=== PATIENT | male | born 1955 | race Caucasian/White ===

== ENCOUNTER 2017-03-01 08:15 | Inpatient (IN) | payer MEDICARE ==
[~2017-03-01] VITALS: Ht 172.7 cm; Wt 56.8 kg
[~2017-03-01 08:15] MED LIST: ACID1GRA2 PO; AZIT500T4 PO; CALC-666 PO; CALC1TAB68 PO; CHOL239. PO; CYAN10005 PO; ERGO500017 PO; FOLI-17 PO; HYDR-3138 PO; METR500T PO; MULT1TAB60 PO; NICO1PAT5 TD; OXYC5TAB3 PO; PHOS250T3 PO; THIA100T6 PO
[2017-03-01] MEDS ORDERED: SODIUM CHLORIDE 0.9% 1,000 ML IV ONE (08:29)
[2017-03-01] MEDS ORDERED: SODIUM CHLORIDE 0.9% 1,000ML IVBOLUS ONE (08:30)
[2017-03-01] MEDS ORDERED: MAALOX/HYOSCYAMINE/LIDOCAINE 45 ML BOTTLE PO ONE (08:30)
[2017-03-01] MEDS ORDERED: FAMOTIDINE 20 MG/2 ML IVP ONE (08:30)
[2017-03-01] MEDS ORDERED: DIPH,PERTUSS(ACELL),TET VAC/PF 0.5 ML IM-VACC ONE ×2 (08:30→08:56)
[2017-03-01] MEDS ORDERED: ONDANSETRON 2MG/ML, 2ML IVPush ONE (08:30)
[2017-03-01] MEDS ORDERED: ONDANSETRON 2MG/ML, 2ML ONE (08:55)
[2017-03-01] MEDS ORDERED: MAALOX/HYOSCYAMINE/LIDOCAINE 45 ML BOTTLE ONE (08:55)
[2017-03-01] MEDS ORDERED: FAMOTIDINE 20 MG/2 ML ONE (08:56)
[2017-03-01] MEDS ORDERED: MORPHINE SULFATE 4 MG/ML, 1ML ONE ×2 (08:59→10:20)
[2017-03-01] MEDS: MORPHINE SULFATE 4 MG/ML, 1ML IVPush PRN ×2 (09:05→10:24)
[2017-03-01 09:12] LABS: ASPARTATE AMINO TRANSFERASE 20 U/L (15-37); BLOOD UREA NITROGEN 26 mg/dL (7-18)
[2017-03-01] MEDS ORDERED: NS + 40MEQ KCL 1,000 ML IV ONE (11:31)
[2017-03-01] MEDS: NS + 40MEQ KCL 1,000 ML IV SCH ×2 (11:37→15:30)
[2017-03-01 12:56] VITALS: BP 131/83
[2017-03-01] MEDS: SODIUM CHLORIDE 0.9% 1,000 ML IV SCH (15:25)
[2017-03-01] MEDS ORDERED: ENALAPRILAT 1.25 MG/ML, 2ML IVPush PRN (15:30)
[2017-03-01] MEDS ORDERED: ONDANSETRON 2MG/ML, 2ML IVP PRN (15:30)
[2017-03-01] MEDS ORDERED: TEMAZEPAM 15 MG CAPSULE PO PRN (15:30)
[2017-03-01] MEDS ORDERED: VANCOMYCIN PER PHARMACY MC PRN (15:30)
[2017-03-01] MEDS ORDERED: ACETAMINOPHEN 325 MG TABLET PO PRN (15:30)
[2017-03-01] MEDS: VANCOMYCIN PMX 1GM/200ML 200 ML IV SCH (16:59)
[2017-03-01] MEDS: NICOTINE 21 MG/24 HR PATCH.TD24 TD SCH (16:59)
[2017-03-01] MEDS ORDERED: PHARMACOKINETIC CONSULTATION MC ONE (18:30)
[2017-03-01] MEDS ORDERED: PHARMACOKINETIC MONITORING MC PRN (18:30)
[2017-03-01 19:21] VITALS: BP 187/71
[2017-03-01] MEDS: HYDROcodone/APAP 5/325 TABLET PO PRN (20:31)
[2017-03-01] MEDS: AMPICILLIN/SULBACTAM 3 GM in SODIUM CHLORIDE 0.9% 100 ML IV SCH (20:31)
[2017-03-01] MEDS: ENOXAPARIN 40 MG/0.4 ML SQ SCH (20:32)
[2017-03-01] MEDS: POTASSIUM CHLORIDE 40 MEQ in SODIUM CHLORIDE 0.9% 500 ML IV SCH (23:07)
[2017-03-02 01:56] VITALS: BP 148/83
[2017-03-02] MEDS: MORPHINE SULFATE 4 MG/ML, 1ML IVPush PRN ×2 (03:25→09:57)
[2017-03-02] MEDS: AMPICILLIN/SULBACTAM 3 GM in SODIUM CHLORIDE 0.9% 100 ML IV SCH ×4 (03:29→22:02)
[2017-03-02] MEDS: POTASSIUM CHLORIDE 40 MEQ in SODIUM CHLORIDE 0.9% 500 ML IV SCH (04:28)
[2017-03-02 06:17] LABS: DIFF TOTAL CELLS COUNTED 100 CELL DIFF
[2017-03-02 06:21] LABS: ASPARTATE AMINO TRANSFERASE 16 U/L (15-37); BLOOD UREA NITROGEN 17 mg/dL (7-18)
[2017-03-02 06:36] LABS: VERIFY COUNTS? YES
[2017-03-02 07:40] VITALS: BP 142/85
[2017-03-02] MEDS: PANTOPROZOLE 40MG TABLET PO SCH (09:32)
[2017-03-02] MEDS: HYDROcodone/APAP 5/325 TABLET PO PRN ×3 (11:16→22:13)
[2017-03-02] MEDS: SODIUM CHLORIDE 0.9% 1,000 ML IV SCH ×2 (12:50→22:00)
[2017-03-02 13:13] VITALS: BP 144/83
[2017-03-02] MEDS ORDERED: MAGNESIUM SULFATE PMX 2GM/50ML 50 ML IV ONE (13:30)
[2017-03-02] MEDS ORDERED: POTASSIUM PHOSPHATE 88 MEQ in SODIUM CHLORIDE 0.9% 1,000 ML IV ONE (14:00)
[2017-03-02] MEDS: VANCOMYCIN PMX 1GM/200ML 200 ML IV SCH (17:51)
[2017-03-02] MEDS: NICOTINE 21 MG/24 HR PATCH.TD24 TD SCH (17:51)
[2017-03-02 18:47] VITALS: BP 102/65
[2017-03-02] MEDS: ENOXAPARIN 40 MG/0.4 ML SQ SCH (22:02)
[2017-03-03 01:04] VITALS: BP 103/63
[2017-03-03] MEDS: AMPICILLIN/SULBACTAM 3 GM in SODIUM CHLORIDE 0.9% 100 ML IV SCH ×4 (03:23→22:04)
[2017-03-03] MEDS: MORPHINE SULFATE 4 MG/ML, 1ML IVPush PRN ×2 (03:32→18:32)
[2017-03-03 06:30] LABS: BLOOD UREA NITROGEN 13 mg/dL (7-18)
[2017-03-03 07:19] VITALS: BP 100/69
[2017-03-03] MEDS: PANTOPROZOLE 40MG TABLET PO SCH (10:53)
[2017-03-03] MEDS: MAGNESIUM OXIDE 400 MG TABLET PO SCH ×2 (13:26→22:04)
[2017-03-03 13:53] VITALS: BP 119/79
[2017-03-03] MEDS: HYDROcodone/APAP 5/325 TABLET PO PRN ×2 (15:54→22:17)
[2017-03-03] MEDS: NICOTINE 21 MG/24 HR PATCH.TD24 TD SCH (15:54)
[2017-03-03] MEDS ORDERED: VANCOMYCIN PMX 1GM/200ML 200 ML IV SCH (18:00)
[2017-03-03 19:05] VITALS: BP 112/72
[2017-03-03] MEDS: ENOXAPARIN 40 MG/0.4 ML SQ SCH (22:04)
[2017-03-03] MEDS: SODIUM CHLORIDE 0.9% 1,000 ML IV SCH (22:04)
[2017-03-04 02:59] VITALS: BP 107/64
[2017-03-04] MEDS: AMPICILLIN/SULBACTAM 3 GM in SODIUM CHLORIDE 0.9% 100 ML IV SCH ×4 (04:21→22:55)
[2017-03-04] MEDS: HYDROcodone/APAP 5/325 TABLET PO PRN ×3 (04:41→21:27)
[2017-03-04] MEDS: VANCOMYCIN PMX 1GM/200ML 200 ML IV SCH ×2 (05:05→17:24)
[2017-03-04 07:17] VITALS: BP 124/78
[2017-03-04] MEDS: MAGNESIUM OXIDE 400 MG TABLET PO SCH ×2 (11:39→21:27)
[2017-03-04] MEDS: PANTOPROZOLE 40MG TABLET PO SCH (11:39)
[2017-03-04] MEDS: SODIUM CHLORIDE 0.9% 1,000 ML IV SCH ×2 (11:40→21:27)
[2017-03-04] MEDS ORDERED: GADOBUTROL 7.5 MMOL/7.5 ML PFS ONE (11:47)
[2017-03-04 13:22] VITALS: BP 115/75
[2017-03-04] MEDS: NICOTINE 21 MG/24 HR PATCH.TD24 TD SCH (15:30)
[2017-03-04 19:50] VITALS: BP 109/68
[2017-03-04] MEDS: ENOXAPARIN 40 MG/0.4 ML SQ SCH (21:27)
[2017-03-05 01:06] VITALS: BP 101/62
[2017-03-05] MEDS: MORPHINE SULFATE 4 MG/ML, 1ML IVPush PRN ×3 (01:33→22:40)
[2017-03-05] MEDS: AMPICILLIN/SULBACTAM 3 GM in SODIUM CHLORIDE 0.9% 100 ML IV SCH ×4 (04:43→22:40)
[2017-03-05] MEDS: HYDROcodone/APAP 5/325 TABLET PO PRN ×3 (05:12→20:41)
[2017-03-05] MEDS: VANCOMYCIN PMX 1GM/200ML 200 ML IV SCH ×2 (05:12→17:21)
[2017-03-05 07:16] VITALS: BP 113/75
[2017-03-05] MEDS: SODIUM CHLORIDE 0.9% 1,000 ML IV SCH ×2 (09:31→20:41)
[2017-03-05] MEDS: PANTOPROZOLE 40MG TABLET PO SCH (09:31)
[2017-03-05] MEDS: MAGNESIUM OXIDE 400 MG TABLET PO SCH ×2 (09:31→20:41)
[2017-03-05 13:41] VITALS: BP 115/75
[2017-03-05] MEDS: NICOTINE 21 MG/24 HR PATCH.TD24 TD SCH (15:27)
[2017-03-05 19:49] VITALS: BP 109/72
[2017-03-05] MEDS: ENOXAPARIN 40 MG/0.4 ML SQ SCH (20:41)
[2017-03-06 01:36] VITALS: BP 112/68
[2017-03-06] MEDS: HYDROcodone/APAP 5/325 TABLET PO PRN ×4 (03:49→22:40)
[2017-03-06] MEDS: AMPICILLIN/SULBACTAM 3 GM in SODIUM CHLORIDE 0.9% 100 ML IV SCH ×4 (03:49→22:41)
[2017-03-06] MEDS: SODIUM CHLORIDE 0.9% 1,000 ML IV SCH ×2 (05:24→22:40)
[2017-03-06] MEDS: VANCOMYCIN PMX 1GM/200ML 200 ML IV SCH ×2 (05:24→17:26)
[2017-03-06 07:32] VITALS: BP 135/82
[2017-03-06] MEDS: PANTOPROZOLE 40MG TABLET PO SCH (09:10)
[2017-03-06] MEDS: MAGNESIUM OXIDE 400 MG TABLET PO SCH ×2 (09:10→22:39)
[2017-03-06 15:01] VITALS: BP 116/75
[2017-03-06] MEDS: NICOTINE 21 MG/24 HR PATCH.TD24 TD SCH (15:30)
[2017-03-06 20:11] VITALS: BP 129/83
[2017-03-06] MEDS: ENOXAPARIN 40 MG/0.4 ML SQ SCH (22:40)
[2017-03-07 02:50] VITALS: BP 125/74
[2017-03-07] MEDS: AMPICILLIN/SULBACTAM 3 GM in SODIUM CHLORIDE 0.9% 100 ML IV SCH ×4 (04:20→22:00)
[2017-03-07] MEDS: VANCOMYCIN PMX 1GM/200ML 200 ML IV SCH ×2 (05:17→18:16)
[2017-03-07] MEDS: HYDROcodone/APAP 5/325 TABLET PO PRN ×3 (06:47→22:00)
[2017-03-07] MEDS: MAGNESIUM OXIDE 400 MG TABLET PO SCH ×2 (09:51→22:00)
[2017-03-07] MEDS: SILVER SULF. CRM 1%, 400GM TP SCH (09:51)
[2017-03-07] MEDS: PANTOPROZOLE 40MG TABLET PO SCH (09:51)
[2017-03-07] MEDS: SODIUM CHLORIDE 0.9% 1,000 ML IV SCH ×2 (09:57→22:00)
[2017-03-07 10:50] VITALS: BP 145/74
[2017-03-07 13:55] VITALS: BP 125/81
[2017-03-07] MEDS: NICOTINE 21 MG/24 HR PATCH.TD24 TD SCH (15:16)
[2017-03-07 20:01] VITALS: BP 128/83
[2017-03-07] MEDS: ENOXAPARIN 40 MG/0.4 ML SQ SCH (22:00)
[2017-03-08 01:22] VITALS: BP 136/90
[2017-03-08] MEDS: AMPICILLIN/SULBACTAM 3 GM in SODIUM CHLORIDE 0.9% 100 ML IV SCH ×3 (04:17→15:37)
[2017-03-08] MEDS: SODIUM CHLORIDE 0.9% 1,000 ML IV SCH (05:50)
[2017-03-08 07:21] VITALS: BP 137/84
[2017-03-08] MEDS: VANCOMYCIN PMX 1GM/200ML 200 ML IV SCH ×2 (08:09→20:29)
[2017-03-08] MEDS: PANTOPROZOLE 40MG TABLET PO SCH (10:58)
[2017-03-08] MEDS: MAGNESIUM OXIDE 400 MG TABLET PO SCH ×2 (10:58→20:28)
[2017-03-08] MEDS: SILVER SULF. CRM 1%, 400GM TP SCH (10:59)
[2017-03-08 14:31] VITALS: BP 113/75
[2017-03-08] MEDS: HYDROcodone/APAP 5/325 TABLET PO PRN (15:37)
[2017-03-08] MEDS: NICOTINE 21 MG/24 HR PATCH.TD24 TD SCH (15:37)
[2017-03-08 19:05] VITALS: BP 104/69
[2017-03-08] MEDS: ENOXAPARIN 40 MG/0.4 ML SQ SCH (20:29)
[2017-03-09] MEDS: AMPICILLIN/SULBACTAM 3 GM in SODIUM CHLORIDE 0.9% 100 ML IV SCH ×4 (00:49→17:07)
[2017-03-09] MEDS: VANCOMYCIN 50 MG/ML ORAL SUSP PO SCH ×4 (00:49→17:08)
[2017-03-09 02:42] VITALS: BP 123/72
[2017-03-09 05:30] LABS: BLOOD UREA NITROGEN 7 mg/dL (7-18)
[2017-03-09 05:35] LABS: ASPARTATE AMINO TRANSFERASE 14 U/L (15-37)
[2017-03-09] MEDS: SODIUM CHLORIDE 0.9% 1,000 ML IV SCH (06:00)
[2017-03-09 06:04] LABS: DIFF TOTAL CELLS COUNTED 100 CELL DIFF
[2017-03-09 06:09] LABS: VERIFY COUNTS? YES
[2017-03-09 06:10] LABS: ANISOCYTOSIS 1+; HYPOCHROMIA 1+
[2017-03-09 06:11] LABS: POLYCHROMASIA 1+
[2017-03-09 08:12] VITALS: BP 163/98
[2017-03-09] MEDS ORDERED: POTASSIUM PHOSPHATE 44 MEQ in SODIUM CHLORIDE 0.9% 500 ML IV SCH (09:00)
[2017-03-09] MEDS ORDERED: POTASSIUM CHLORIDE 20 MEQ TAB.ER.PRT PO ONE (09:00)
[2017-03-09] MEDS ORDERED: MAGNESIUM SULFATE PMX 4GM/100M 100 ML IV ONE (09:00)
[2017-03-09] MEDS: PANTOPROZOLE 40MG TABLET PO SCH (09:18)
[2017-03-09] MEDS: MAGNESIUM OXIDE 400 MG TABLET PO SCH ×2 (09:18→20:59)
[2017-03-09] MEDS: VANCOMYCIN PMX 1GM/200ML 200 ML IV SCH ×2 (09:18→20:59)
[2017-03-09] MEDS ORDERED: POTASSIUM PHOSPHATE 88 MEQ in SODIUM CHLORIDE 0.9% 1,000 ML IV ONE (09:23)
[2017-03-09] MEDS: HYDROcodone/APAP 5/325 TABLET PO PRN ×2 (10:21→21:03)
[2017-03-09] MEDS: SILVER SULF. CRM 1%, 400GM TP SCH (10:22)
[2017-03-09 14:00] VITALS: BP 116/73
[2017-03-09] MEDS: NICOTINE 21 MG/24 HR PATCH.TD24 TD SCH (15:27)
[2017-03-09 20:30] VITALS: BP 140/91
[2017-03-09] MEDS: ENOXAPARIN 40 MG/0.4 ML SQ SCH (20:59)
[2017-03-10] MEDS: AMPICILLIN/SULBACTAM 3 GM in SODIUM CHLORIDE 0.9% 100 ML IV SCH ×5 (00:12→22:30)
[2017-03-10] MEDS: HYDROcodone/APAP 5/325 TABLET PO PRN ×3 (00:13→13:30)
[2017-03-10] MEDS: VANCOMYCIN 50 MG/ML ORAL SUSP PO SCH ×4 (00:13→21:11)
[2017-03-10 01:44] VITALS: BP 128/79
[2017-03-10] MEDS: MORPHINE SULFATE 4 MG/ML, 1ML IVPush PRN ×2 (02:19→17:43)
[2017-03-10 05:03] LABS: BLOOD UREA NITROGEN 7 mg/dL (7-18)
[2017-03-10 08:10] VITALS: BP 139/88
[2017-03-10] MEDS: PANTOPROZOLE 40MG TABLET PO SCH (08:35)
[2017-03-10] MEDS: VANCOMYCIN PMX 1GM/200ML 200 ML IV SCH ×2 (08:35→21:07)
[2017-03-10] MEDS: MAGNESIUM OXIDE 400 MG TABLET PO SCH ×2 (08:35→21:11)
[2017-03-10] MEDS: SODIUM CHLORIDE 0.9% 1,000 ML IV SCH ×2 (08:36→21:11)
[2017-03-10] MEDS: SILVER SULF. CRM 1%, 400GM TP SCH (08:58)
[2017-03-10] MEDS: LACTOBACILLUS CHEW TABLET PO SCH ×3 (13:30→21:11)
[2017-03-10 13:50] VITALS: BP 151/86
[2017-03-10] MEDS: NICOTINE 21 MG/24 HR PATCH.TD24 TD SCH (15:30)
[2017-03-10 19:42] VITALS: BP 136/84
[2017-03-10] MEDS: SIMVASTATIN 40 MG TABLET PO SCH (21:11)
[2017-03-10] MEDS: ENOXAPARIN 40 MG/0.4 ML SQ SCH (21:11)
[2017-03-11] MEDS: MORPHINE SULFATE 4 MG/ML, 1ML IVPush PRN ×4 (00:41→20:08)
[2017-03-11] MEDS: VANCOMYCIN 50 MG/ML ORAL SUSP PO SCH ×4 (02:28→20:07)
[2017-03-11 04:18] VITALS: BP 135/76
[2017-03-11] MEDS: AMPICILLIN/SULBACTAM 3 GM in SODIUM CHLORIDE 0.9% 100 ML IV SCH (04:24)
[2017-03-11] MEDS: ASPIRIN 81 MG TABLET EC PO SCH (06:04)
[2017-03-11] MEDS: SODIUM CHLORIDE 0.9% 1,000 ML IV SCH (06:05)
[2017-03-11] MEDS: PANTOPROZOLE 40MG TABLET PO SCH (07:57)
[2017-03-11] MEDS: VANCOMYCIN PMX 1GM/200ML 200 ML IV SCH (07:58)
[2017-03-11] MEDS: MAGNESIUM OXIDE 400 MG TABLET PO SCH ×2 (07:58→20:07)
[2017-03-11] MEDS: LACTOBACILLUS CHEW TABLET PO SCH ×3 (07:58→20:07)
[2017-03-11] MEDS: SILVER SULF. CRM 1%, 400GM TP SCH (08:21)
[2017-03-11 08:30] VITALS: BP 132/85
[2017-03-11 12:38] VITALS: BP 113/69
[2017-03-11] MEDS: NICOTINE 21 MG/24 HR PATCH.TD24 TD SCH (14:54)
[2017-03-11 19:45] VITALS: BP 126/75
[2017-03-11] MEDS: SIMVASTATIN 40 MG TABLET PO SCH (20:07)
[2017-03-11] MEDS: ENOXAPARIN 40 MG/0.4 ML SQ SCH (20:08)
[2017-03-12] MEDS: VANCOMYCIN 50 MG/ML ORAL SUSP PO SCH ×4 (01:42→19:49)
[2017-03-12] MEDS: MORPHINE SULFATE 4 MG/ML, 1ML IVPush PRN ×2 (01:42→08:32)
[2017-03-12 04:36] VITALS: BP 132/66
[2017-03-12] MEDS: ASPIRIN 81 MG TABLET EC PO SCH (06:17)
[2017-03-12 07:02] VITALS: BP 155/86
[2017-03-12] MEDS: LACTOBACILLUS CHEW TABLET PO SCH ×3 (08:31→20:49)
[2017-03-12] MEDS: MAGNESIUM OXIDE 400 MG TABLET PO SCH ×2 (08:31→20:49)
[2017-03-12] MEDS: HYDROcodone/APAP 5/325 TABLET PO PRN ×3 (12:03→22:59)
[2017-03-12] MEDS: NICOTINE 21 MG/24 HR PATCH.TD24 TD SCH (14:37)
[2017-03-12 15:24] VITALS: BP 126/81
[2017-03-12] MEDS: SILVER SULF. CRM 1%, 400GM TP SCH (15:30)
[2017-03-12 19:52] VITALS: BP 134/86
[2017-03-12] MEDS: ENOXAPARIN 40 MG/0.4 ML SQ SCH (20:49)
[2017-03-12] MEDS: SIMVASTATIN 40 MG TABLET PO SCH (20:49)
[2017-03-13 01:42] VITALS: BP 127/70
[2017-03-13] MEDS: VANCOMYCIN 50 MG/ML ORAL SUSP PO SCH ×4 (01:57→20:40)
[2017-03-13] MEDS: ASPIRIN 81 MG TABLET EC PO SCH (05:53)
[2017-03-13] MEDS: HYDROcodone/APAP 5/325 TABLET PO PRN ×5 (05:53→23:20)
[2017-03-13] MEDS: MAGNESIUM OXIDE 400 MG TABLET PO SCH ×2 (07:54→20:41)
[2017-03-13] MEDS: LACTOBACILLUS CHEW TABLET PO SCH ×3 (07:54→20:41)
[2017-03-13 07:58] VITALS: BP 129/78
[2017-03-13] MEDS: SILVER SULF. CRM 1%, 400GM TP SCH (09:54)
[2017-03-13 14:13] VITALS: BP 125/77
[2017-03-13] MEDS: NICOTINE 21 MG/24 HR PATCH.TD24 TD SCH (17:54)
[2017-03-13] MEDS: VANCOMYCIN 1,000 MG in SODIUM CHLORIDE 0.9% 100 ML IV SCH (17:54)
[2017-03-13 19:43] VITALS: BP 129/76
[2017-03-13] MEDS: ENOXAPARIN 40 MG/0.4 ML SQ SCH (20:40)
[2017-03-13] MEDS: SIMVASTATIN 40 MG TABLET PO SCH (20:41)
[2017-03-14] VITALS (12 sets, daily range): BP systolic 112–156; BP diastolic 70–94
[2017-03-14] MEDS ORDERED: PIPERONYL BUTOXIDE/PYRETHRINS SHAMPOO TP SCH (01:00)
[2017-03-14] MEDS ORDERED: PERMETHRIN CRM 5%, 60GM TP SCH (01:00)
[2017-03-14] MEDS: VANCOMYCIN 50 MG/ML ORAL SUSP PO SCH ×4 (03:12→20:19)
[2017-03-14] MEDS: VANCOMYCIN 1,000 MG in SODIUM CHLORIDE 0.9% 100 ML IV SCH ×2 (05:33→20:15)
[2017-03-14] MEDS: ASPIRIN 81 MG TABLET EC PO SCH (05:34)
[2017-03-14 07:11] LABS: DIFF TOTAL CELLS COUNTED 100 CELL DIFF
[2017-03-14 07:16] LABS: ANISOCYTOSIS 1+; VERIFY COUNTS? YES
[2017-03-14 07:17] LABS: HYPOCHROMIA 1+; POLYCHROMASIA 1+
[2017-03-14] MEDS: LACTOBACILLUS CHEW TABLET PO SCH ×3 (08:56→20:15)
[2017-03-14] MEDS: SILVER SULF. CRM 1%, 400GM TP SCH (08:58)
[2017-03-14] MEDS: HYDROcodone/APAP 5/325 TABLET PO PRN ×2 (09:36→17:40)
[2017-03-14] MEDS: NICOTINE 21 MG/24 HR PATCH.TD24 TD SCH (17:36)
[2017-03-14] MEDS: SIMVASTATIN 40 MG TABLET PO SCH (20:17)
[2017-03-14] MEDS: ENOXAPARIN 40 MG/0.4 ML SQ SCH (20:18)
[2017-03-15] MEDS: VANCOMYCIN 50 MG/ML ORAL SUSP PO SCH ×3 (01:43→14:37)
[2017-03-15] MEDS: HYDROcodone/APAP 5/325 TABLET PO PRN ×3 (01:44→14:50)
[2017-03-15 02:03] VITALS: BP 120/78
[2017-03-15] MEDS: ASPIRIN 81 MG TABLET EC PO SCH (06:02)
[2017-03-15 07:59] VITALS: BP 121/77
[2017-03-15] MEDS: LACTOBACILLUS CHEW TABLET PO SCH (08:28)
[2017-03-15] MEDS: SILVER SULF. CRM 1%, 400GM TP SCH (08:30)
[2017-03-15] MEDS: VANCOMYCIN 1,000 MG in SODIUM CHLORIDE 0.9% 100 ML IV SCH (08:34)
[2017-03-15] MEDS ORDERED: SIMV40TA3 PO (11:46)
[2017-03-15] MEDS ORDERED: VANC1VIA3 PO (11:46)
[2017-03-15] MEDS ORDERED: SILV25CR4 TP (11:46)
[2017-03-15] MEDS ORDERED: ASPI-621 PO (11:46)
[2017-03-15] MEDS ORDERED: HYDR-3240 PO (11:46)
[2017-03-15] MEDS ORDERED: TEMA15CA6 PO (11:46)
[2017-03-15] MEDS ORDERED: ACID1TAB7 PO (11:46)
[2017-03-15] MEDS ORDERED: NICO1PAT10 TD (11:46)
[2017-03-15] MEDS ORDERED: ACET325T14 PO (11:46)
[2017-03-15] MEDS ORDERED: [UNRECOGNIZED DRUG - CODE] TP (11:46)
[2017-03-15] MEDS ORDERED: VANC1VIA3 IV (11:54)
[2017-03-15 13:15] VITALS: BP 123/74
== END 2017-03-15 16:20 | DRG 871 ==
LOC: ED 11:23 → 4WST 11:24 → ED 12:23 → EDIP 03-09 23:10 → ICU 03-09 23:10 → 3NE 03-12 13:22
PROVIDERS: ADMIT Hospitalist; ATTEND Internal Medicine
PROC: 0T9B70Z Drainage of Bladder with Drainage Device, Via Natural or Artificial Opening (ICD-10-PCS; principal; 2017-03-01)
PROC: 02HV33Z Insertion of Infusion Device into Superior Vena Cava, Percutaneous Approach (ICD-10-PCS; 2017-03-10)
PROC: B5181ZA Fluoroscopy of Superior Vena Cava using Low Osmolar Contrast, Guidance (ICD-10-PCS; 2017-03-10)
PROC: 30233N1 Transfusion of Nonautologous Red Blood Cells into Peripheral Vein, Percutaneous Approach (ICD-10-PCS; 2017-03-14)
DX: A41.02 Sepsis due to Methicillin resistant Staphylococcus aureus (principal); G93.40 Encephalopathy, unspecified; E43 Unspecified severe protein-calorie malnutrition; L03.221 Cellulitis of neck; N17.9 Acute kidney failure, unspecified; A04.7 Enterocolitis due to Clostridium difficile; L03.113 Cellulitis of right upper limb; Z68.1 Body mass index [BMI] 19.9 or less, adult; M48.54XA Collapsed vertebra, not elsewhere classified, thoracic region, initial encounter for fracture; M81.0 Age-related osteoporosis without current pathological fracture; L89.92 Pressure ulcer of unspecified site, stage 2; B95.4 Other streptococcus as the cause of diseases classified elsewhere; B96.89 Other specified bacterial agents as the cause of diseases classified elsewhere; D53.9 Nutritional anemia, unspecified; D70.9 Neutropenia, unspecified; E83.39 Other disorders of phosphorus metabolism; B85.1 Pediculosis due to Pediculus humanus corporis; W18.39XA Other fall on same level, initial encounter; B95.2 Enterococcus as the cause of diseases classified elsewhere; E83.42 Hypomagnesemia; E87.6 Hypokalemia; B96.4 Proteus (mirabilis) (morganii) as the cause of diseases classified elsewhere; R62.7 Adult failure to thrive; M54.9 Dorsalgia, unspecified; M50.31 Other cervical disc degeneration, high cervical region; M41.9 Scoliosis, unspecified; Z86.73 Personal history of transient ischemic attack (TIA), and cerebral infarction without residual deficits; Z87.891 Personal history of nicotine dependence; Y93.89 Activity, other specified; Y92.098 Other place in other non-institutional residence as the place of occurrence of the external cause; Y99.8 Other external cause status
CPT/HCPCS: 36415; 36568; 70450; 70553; 71010; 72125; 76937; 77001; 80048; 80053; 80202; 81001; 82330; 82550; 82553; 82607; 82746; 83036; 83605; 83690; 83735; 84100; 84439; 84443; 85014; 85018; 85025; 85610; 86850; 86900; 86923; 87040; 87070; 87077; 87147; 87181; 87186; 87205; 87324; 89055; 90471; 90715; 93005; 93306; 96361; 96374; 96375; A9585; J0295; J1650; J2405; J3370; J3480; C1751; J3475; J7030; J7040; P9016; S0028